=== PATIENT | male | born 1955 | race Two or more races ===

== ENCOUNTER 2019-10-12 09:03 | Outpatient (CLI) | payer OTHER | END 2019-10-12 09:07 | disposition home or self-care (01) | LOC: LAB 09:03 | DX: R10.13 Epigastric pain (principal) ==

== ENCOUNTER → 2019-10-12 | Outpatient (CLI) | payer OTHER | END | disposition home or self-care (01) | LOC: SONOGRAMA 09:10 | DX: R10.13 Epigastric pain (principal) ==

== ENCOUNTER 2022-03-13 07:38 | Outpatient (CLI) | payer OTHER | END 2022-03-13 07:47 | disposition home or self-care (01) | LOC: LAB 07:38 | PROVIDERS: ATTEND Internal Medicine Cardiovascular Disease | DX: I10 Essential (primary) hypertension (principal); E11.9 Type 2 diabetes mellitus without complications; E03.9 Hypothyroidism, unspecified; E78.2 Mixed hyperlipidemia; E55.9 Vitamin D deficiency, unspecified; N40.0 Benign prostatic hyperplasia without lower urinary tract symptoms; Z12.11 Encounter for screening for malignant neoplasm of colon ==

== ENCOUNTER 2022-07-19 08:20 | Outpatient (CLI) | payer OTHER | END 2022-07-19 08:25 | disposition home or self-care (01) | LOC: LAB 08:20 | PROVIDERS: ATTEND Internal Medicine Cardiovascular Disease | DX: I10 Essential (primary) hypertension (principal); E78.2 Mixed hyperlipidemia ==

== ENCOUNTER 2022-12-23 07:41 | Outpatient (CLI) | payer OTHER | END 2022-12-23 07:42 | disposition home or self-care (01) | LOC: LAB 07:41 | PROVIDERS: ATTEND Internal Medicine Cardiovascular Disease | DX: E03.9 Hypothyroidism, unspecified (principal); I10 Essential (primary) hypertension; E11.9 Type 2 diabetes mellitus without complications; E78.2 Mixed hyperlipidemia; E55.9 Vitamin D deficiency, unspecified; N40.0 Benign prostatic hyperplasia without lower urinary tract symptoms; Z12.11 Encounter for screening for malignant neoplasm of colon ==

== ENCOUNTER 2023-05-28 07:40 | Outpatient (CLI) | payer OTHER ==
[2023-05-28 08:56] LABS: PH,URINE 5.5 (5.0-8.0); URINE APPEARANCE Clear; URINE BILIRRUBIN Negative (NEGATIVE); URINE BLOOD Negative; URINE COLOR Yellow; URINE GLUCOSE Negative (NEGATIVE); URINE LEUKOCYTE Negative; URINE NITRATE Negative; URINE PROTEIN Negative (NEGATIVE); URINE UROBILINOGEN 0.2 E.U./dl
[2023-05-28 08:57] LABS: URINE BACTERIA 25.1 uL (0.0-1933); URINE EPITHELIAL CELLS 2.7 uL (0.0-38.8); URINE WBC 2.6 uL (0.0-23.2)
[2023-05-28 09:04] LABS: HEMATOCRIT 44.9 % (39.0-48.0); HEMOGLOBIN 15.1 g/dL (13-16.00); MEAN CELL VOLUME 94.9 fL (80.0-100.00); MEAN CORPUSCULAR HGB CONC 33.7 g/dl (32.0-36.0); PLATELET COUNT 196 K/uL (150-450); RED BLOOD COUNT 4.73 M/uL (4.00-6.00); RED CELL DISTRIBUTION WIDTH 13.3 % (11.5-14.5)
[2023-05-28 09:30] LABS: ALBUMIN 3.9 gm/dL (3.4-5.0); BILIRUBIN TOTAL 0.91 mg/dL (0.3-1.2); CALCIUM 9.1 mg/dL (8.5-10.1); CREATININE SERUM 1.08 mg/dL (0.70-1.30); GFR 68.41; GLOBULINA 3.2 G/DL (2.4-3.5); POTASSIUM 4.15 mEq/L (3.5-5.1); T4 FREE 1.06 NG/ML (0.76-1.46); TOTAL PROTEIN 7.1 gm/dL (6.4-8.2)
[2023-05-28 09:33] LABS: URINE RBC 0.2 uL (0.0-20.8)
== END 2023-05-28 07:57 | disposition home or self-care (01) ==
LOC: LAB 07:40
PROVIDERS: ATTEND Internal Medicine Cardiovascular Disease
DX: E11.9 Type 2 diabetes mellitus without complications (principal); E03.9 Hypothyroidism, unspecified; E78.2 Mixed hyperlipidemia

== ENCOUNTER → 2023-10-28 09:45 | Outpatient (CLI) | payer OTHER ==
[2023-10-28 11:10] LABS: HEMATOCRIT 45.1 % (39.0-48.0); HEMOGLOBIN 15.7 g/dL (13-16.00); MEAN CELL VOLUME 93.4 fL (80.0-100.00); MEAN CORPUSCULAR HEMOGLOBIN 32.5 pg (27.00-32.0); MEAN CORPUSCULAR HGB CONC 34.8 g/dl (32.0-36.0); PLATELET COUNT 207 K/uL (150-450); RED BLOOD COUNT 4.83 M/uL (4.00-6.00); RED CELL DISTRIBUTION WIDTH 13.2 % (11.5-14.5)
[2023-10-28 11:14] LABS: PH,URINE 5.5 (5.0-8.0); URINE APPEARANCE Clear; URINE BILIRRUBIN Negative (NEGATIVE); URINE BLOOD Negative; URINE COLOR Yellow; URINE GLUCOSE Negative (NEGATIVE); URINE LEUKOCYTE Negative; URINE NITRATE Negative; URINE PROTEIN Negative (NEGATIVE)
[2023-10-28 11:19] LABS: URINE BACTERIA 6.2 uL (0.0-1933); URINE EPITHELIAL CELLS 2.3 uL (0.0-38.8); URINE RBC 2.5 uL (0.0-20.8); URINE WBC 2.9 uL (0.0-23.2)
[2023-10-28 11:52] LABS: BILIRUBIN TOTAL 0.86 mg/dL (0.3-1.2); CALCIUM 9.7 mg/dL (8.5-10.1); CHOL HDL RATIO 3.7 (0-5.0); CREATININE SERUM 0.94 mg/dL (0.70-1.30); GFR 80.29; GLOBULINA 3.5 G/DL (2.4-3.5); POTASSIUM 4.41 mEq/L (3.5-5.1); PROSTATIC SPECIFIC ANTIGEN 0.564 NG/ML (0.010-4.00); T4 TOTAL 11.85 UG/DL (4.5-12.1); TOTAL PROTEIN 7.5 gm/dL (6.4-8.2); TSH 2.41 uIU/mL (0.358-3.74)
[2023-10-28 12:00] LABS: ob NEGATIVE (NEGATIVE)
[2023-10-28 12:46] LABS: T3 TOTAL 1.32 ng/ml (0.846-2.02); VITAMIN D3 25 HYDROXY 31.82 ng/ml (30-120)
== END | disposition home or self-care (01) ==
LOC: LAB 09:45
PROVIDERS: ATTEND Internal Medicine Cardiovascular Disease
DX: I10 Essential (primary) hypertension (principal); E11.9 Type 2 diabetes mellitus without complications; E03.9 Hypothyroidism, unspecified; E78.2 Mixed hyperlipidemia; Z12.11 Encounter for screening for malignant neoplasm of colon; N40.0 Benign prostatic hyperplasia without lower urinary tract symptoms; E55.9 Vitamin D deficiency, unspecified

== ENCOUNTER 2024-04-27 08:52 | Outpatient (CLI) | payer OTHER ==
[2024-04-27 09:41] LABS: HEMATOCRIT 42.1 % (39.0-48.0); HEMOGLOBIN 14.9 g/dL (13-16.00); MEAN CELL VOLUME 92.4 fL (80.0-100.00); MEAN CORPUSCULAR HEMOGLOBIN 32.7 pg (27.00-32.0); MEAN CORPUSCULAR HGB CONC 35.4 g/dl (32.0-36.0); PLATELET COUNT 205 K/uL (150-450); RED BLOOD COUNT 4.55 M/uL (4.00-6.00); RED CELL DISTRIBUTION WIDTH 13.4 % (11.5-14.5)
[2024-04-27 09:47] LABS: PH,URINE 5.5 (5.0-8.0); URINE APPEARANCE Clear; URINE BILIRRUBIN Negative (NEGATIVE); URINE BLOOD Negative; URINE COLOR Yellow; URINE GLUCOSE Negative (NEGATIVE); URINE KETONE Negative (NEGATIVE); URINE LEUKOCYTE Negative; URINE NITRATE Negative; URINE PROTEIN Negative (NEGATIVE); URINE UROBILINOGEN 0.2 E.U./dl
[2024-04-27 09:52] LABS: URINE EPITHELIAL CELLS 1.9 uL (0.0-38.8)
[2024-04-27 09:59] LABS: URINE BACTERIA 1.2 uL (0.0-1933); URINE RBC 1.5 uL (0.0-20.8); URINE WBC 0.7 uL (0.0-23.2)
[2024-04-27 10:32] LABS: CALCIUM 9.2 mg/dL (8.5-10.1); CHOL HDL RATIO 3.1 (0-5.0); CREATININE SERUM 0.94 mg/dL (0.70-1.30); GFR 80.05; POTASSIUM 4.07 mEq/L (3.5-5.1); T4 TOTAL 9.23 UG/DL (4.5-12.1); TSH 1.61 uIU/mL (0.358-3.74)
== END 2024-04-27 08:57 | disposition home or self-care (01) ==
LOC: LAB 08:52
PROVIDERS: ATTEND Internal Medicine Cardiovascular Disease
DX: E78.2 Mixed hyperlipidemia (principal); E11.9 Type 2 diabetes mellitus without complications; I10 Essential (primary) hypertension; E03.9 Hypothyroidism, unspecified

== ENCOUNTER 2024-10-26 07:56 | Outpatient (CLI) | payer OTHER ==
[2024-10-26 08:53] LABS: HEMATOCRIT 44.5 % (39.0-48.0); HEMOGLOBIN 15.6 g/dL (13-16.00); MEAN CELL VOLUME 93.1 fL (80.0-100.00); MEAN CORPUSCULAR HEMOGLOBIN 32.7 pg (27.00-32.0); MEAN CORPUSCULAR HGB CONC 35.1 g/dl (32.0-36.0); PLATELET COUNT 202 K/uL (150-450); RED BLOOD COUNT 4.78 M/uL (4.00-6.00); RED CELL DISTRIBUTION WIDTH 13.2 % (11.5-14.5)
[2024-10-26 08:54] LABS: URINE APPEARANCE Clear; URINE BILIRRUBIN Negative (NEGATIVE); URINE BLOOD Negative; URINE COLOR Yellow; URINE GLUCOSE Negative (NEGATIVE); URINE KETONE Negative (NEGATIVE); URINE LEUKOCYTE Negative; URINE NITRATE Negative; URINE PROTEIN Negative (NEGATIVE); URINE UROBILINOGEN 0.2 E.U./dl
[2024-10-26 08:57] LABS: URINE BACTERIA 18.3 uL (0.0-1933); URINE WBC 1.8 uL (0.0-23.2)
[2024-10-26 09:01] LABS: URINE CAST 0.29 uL (0.0-1.40); URINE EPITHELIAL CELLS 0.7 uL (0.0-38.8); URINE RBC 0.2 uL (0.0-20.8)
[2024-10-26 09:49] LABS: ALBUMIN 3.8 gm/dL (3.4-5.0); BILIRUBIN TOTAL 0.63 mg/dL (0.3-1.2); CALCIUM 9.4 mg/dL (8.5-10.1); CHOL HDL RATIO 3.2 (0-5.0); CREATININE SERUM 1.01 mg/dL (0.70-1.30); GFR 73.68; GLOBULINA 3.5 G/DL (2.4-3.5); POTASSIUM 4.58 mEq/L (3.5-5.1); T4 TOTAL 9.4 UG/DL (4.5-12.1); TOTAL PROTEIN 7.3 gm/dL (6.4-8.2); TSH 3.05 uIU/mL (0.358-3.74)
== END 2024-10-26 07:59 | disposition home or self-care (01) ==
LOC: LAB 07:56
PROVIDERS: ATTEND Internal Medicine Cardiovascular Disease
DX: I10 Essential (primary) hypertension (principal); E11.9 Type 2 diabetes mellitus without complications; E03.9 Hypothyroidism, unspecified; E78.2 Mixed hyperlipidemia

== ENCOUNTER 2025-01-11 11:59 | Outpatient (CLI) | payer OTHER | END 2025-01-11 12:05 | disposition home or self-care (01) | LOC: LAB 11:59 | PROVIDERS: ATTEND Urology | DX: N40.0 Benign prostatic hyperplasia without lower urinary tract symptoms (principal) ==

== ENCOUNTER 2025-01-26 07:40 | Outpatient (CLI) | payer OTHER ==
[2025-01-26 08:26] LABS: BASO % 0.8 % (0.1-1.2); EOS % 4.1 % (0.7-7.0); HEMATOCRIT 43.7 % (40.1-51.0); HEMOGLOBIN 15.2 g/dL (13.7-17.5); LYMPH # 1.96 (1.18-3.74); LYMPH % 40.2 % (19.3-53.1); MEAN CORPUSCULAR HEMOGLOBIN 31.2 pg (25.6-32.2); MONO # 0.41 (0.24-0.82); MONO % 8.4 % (4.7-12.5); NEUT # 2.26 (1.56-6.13); NEUT % 46.3 % (34.0-71.1); PLATELET COUNT 201 K/uL (163-369); RED BLOOD COUNT 4.87 M/uL (4.63-6.08); RED CELL DISTRIBUTION WIDTH 12.1 % (11.6-14.4)
[2025-01-26 08:29] LABS: PH,URINE 5.5 (5.0-8.0); URINE APPEARANCE Clear; URINE BILIRRUBIN Negative (NEGATIVE); URINE BLOOD Negative; URINE COLOR Yellow; URINE GLUCOSE Negative (NEGATIVE); URINE KETONE Trace (NEGATIVE); URINE LEUKOCYTE Negative; URINE NITRATE Negative; URINE PROTEIN Negative (NEGATIVE); URINE UROBILINOGEN 0.2 E.U./dl
[2025-01-26 08:33] LABS: URINE EPITHELIAL CELLS 6.1 uL (0.0-38.8); URINE WBC 3.7 uL (0.0-23.2)
[2025-01-26 08:35] LABS: URINE CAST 0.14 uL (0.0-1.40)
[2025-01-26 09:06] LABS: ob NEGATIVE (NEGATIVE)
[2025-01-26 09:12] LABS: CALCIUM 9.7 mg/dL (8.5-10.1); CHOL HDL RATIO 3.6 (0-5.0); CREATININE SERUM 0.98 mg/dL (0.70-1.30); GFR 76.06; POTASSIUM 4.7 mEq/L (3.5-5.1); PROSTATIC SPECIFIC ANTIGEN 0.657 NG/ML (0.010-4.00); T4 TOTAL 10.21 UG/DL (4.5-12.1); TSH 2.5 uIU/mL (0.358-3.74)
[2025-01-26 10:25] LABS: T3 TOTAL 1.31 ng/ml (0.846-2.02); VITAMIN D3 25 HYDROXY 32.83 ng/ml (30-120)
== END 2025-01-26 07:49 | disposition home or self-care (01) ==
LOC: LAB 07:40
PROVIDERS: ATTEND Internal Medicine Cardiovascular Disease
DX: I10 Essential (primary) hypertension (principal); E11.9 Type 2 diabetes mellitus without complications; E03.9 Hypothyroidism, unspecified; E78.2 Mixed hyperlipidemia; D64.0 Hereditary sideroblastic anemia; Z12.11 Encounter for screening for malignant neoplasm of colon; N40.0 Benign prostatic hyperplasia without lower urinary tract symptoms; E55.9 Vitamin D deficiency, unspecified; M81.0 Age-related osteoporosis without current pathological fracture

== ENCOUNTER 2025-04-28 09:25 | Outpatient (CLI) | payer OTHER ==
[2025-04-28 10:15] LABS: BASO % 0.8 % (0.1-1.2); EOS # 0.15 (0.04-0.54); EOS % 3.1 % (0.7-7.0); LYMPH # 1.68 (1.18-3.74); LYMPH % 35.2 % (19.3-53.1); MEAN PLATELET VOLUME 9.80 fl (9.4-12.4); MONO # 0.33 (0.24-0.82); MONO % 6.9 % (4.7-12.5); NEUT # 2.56 (1.56-6.13); NEUT % 53.8 % (34.0-71.1); RED CELL DISTRIBUTION WIDTH 12.1 % (11.6-14.4)
[2025-04-28 10:19] LABS: URINE APPEARANCE Clear; URINE BILIRRUBIN Negative (NEGATIVE); URINE BLOOD Negative; URINE COLOR Dark Yellow; URINE GLUCOSE Negative (NEGATIVE); URINE KETONE Trace (NEGATIVE); URINE LEUKOCYTE Negative; URINE NITRATE Negative; URINE PROTEIN Negative (NEGATIVE); URINE UROBILINOGEN 0.2 E.U./dl
[2025-04-28 10:23] LABS: URINE BACTERIA 8.3 uL (0.0-1933); URINE EPITHELIAL CELLS 2.4 uL (0.0-38.8); URINE WBC 4.7 uL (0.0-23.2)
[2025-04-28 10:27] LABS: URINE CAST 0.29 uL (0.0-1.40); URINE RBC 1.0 uL (0.0-20.8)
[2025-04-28 11:54] LABS: BUN CREA RATIO 15.0 (7.0-25.0); CHOL HDL RATIO 3.5 (0-5.0); CREATININE SERUM 0.97 mg/dL (0.70-1.30); GFR 76.96; GLUCOSE FASTING 93.0 mg/dL (65-100); HDL 50.0 mg/dl (40-60); LDL 96.0 mg/dl (0-130); OSMOLALITY SERUM 282.0 MOSM/KG (275-295); T4 TOTAL 8.27 UG/DL (4.5-12.1); TSH 1.83 uIU/mL (0.358-3.74); VLDL 30.0 (0-39)
== END 2025-04-28 09:26 | disposition home or self-care (01) ==
LOC: LAB 09:25
PROVIDERS: ATTEND Internal Medicine Cardiovascular Disease
DX: I10 Essential (primary) hypertension (principal); E03.9 Hypothyroidism, unspecified; E78.2 Mixed hyperlipidemia; R73.03 Prediabetes